=== PATIENT | male | born 1990 | race Caucasian/White ===

== ENCOUNTER 2019-05-11 09:10 | Emergency (ER) | payer MEDICAID ==
[~2019-05-11] VITALS: Ht 175.3 cm; Wt 93.4 kg
[2019-05-11 09:24] VITALS: Ht 175.3 cm; Wt 93.4 kg
[2019-05-11 10:21] VITALS: BP 119/80
[2019-05-11 10:43] LABS: microscopic required? YES; urine erythrocyte 1+ (NEGATIVE)
== END 2019-05-11 11:13 | disposition home or self-care (01) ==
LOC: ED 09:10
PROVIDERS: Emergency Medicine
DX: A64 Unspecified sexually transmitted disease (principal); B34.9 Viral infection, unspecified; J45.909 Unspecified asthma, uncomplicated; F15.90 Other stimulant use, unspecified, uncomplicated; F11.90 Opioid use, unspecified, uncomplicated
CPT/HCPCS: 87491; 87591; J0696

== ENCOUNTER 2019-10-14 20:23 | Emergency (ER) | payer MEDICAID ==
[~2019-10-14] VITALS: Ht 175.3 cm; Wt 86.6 kg
[2019-10-14 20:27] VITALS: Ht 175.3 cm; Wt 86.6 kg
[2019-10-14 21:49] VITALS: BP 122/74
== END 2019-10-14 21:49 | disposition home or self-care (01) ==
LOC: ED 20:23
DX: J45.901 Unspecified asthma with (acute) exacerbation (principal)
CPT/HCPCS: J2930

== ENCOUNTER 2020-03-31 22:08 | Emergency (ER) | payer MEDICAID ==
[~2020-03-31] VITALS: Ht 175.3 cm; Wt 88.9 kg
[2020-03-31 22:16] VITALS: Ht 175.3 cm; Wt 88.9 kg
[2020-03-31 23:17] VITALS: BP 137/92
== END 2020-03-31 23:17 | disposition home or self-care (01) ==
LOC: ED 22:08
DX: L30.9 Dermatitis, unspecified (principal); J30.2 Other seasonal allergic rhinitis

== ENCOUNTER 2020-06-24 18:57 | Emergency (ER) | payer MEDICAID ==
[~2020-06-24] VITALS: Ht 175.3 cm; Wt 86.2 kg
[2020-06-24 19:12] VITALS: Ht 175.3 cm; Wt 86.2 kg
[2020-06-24 21:52] VITALS: BP 115/58
== END 2020-06-24 21:52 | disposition home or self-care (01) ==
LOC: ED 18:57
DX: L29.0 Pruritus ani (principal); K64.9 Unspecified hemorrhoids; J45.909 Unspecified asthma, uncomplicated